=== PATIENT | male | born 1975 | race African-American/Black ===

== ENCOUNTER 2018-08-09 11:02 | Inpatient (IN) | payer OTHER ==
[2018-08-09 13:47] VITALS: BMI 26.9
--- NOTE | 2018-08-09 14:15 | HP ---
CIWA Score Nausea/Vomitin-Mild Nausea/No Vomiting Muscle Tremors: 4-Moderate,w/Arms Extend Anxiety: 1-Mildly Anxious Agitation: 1-Slight > Activity Paroxysmal Sweats: 3 (Increased facial moisture) Orientation: 0-Oriented Tacttile Disturbances: 0-None Auditory Disturbances: 0-None Visual Disturbances: 0-None Headache: 3-Moderate CIWA-Ar Total Score: 13 - Admission Criteria OAS Guidelines: Admission for Medically Managed Detox: Requires at least one of the followin. CIWA greater than 12 2. Seizures within the past 24 hours 3. Delirium tremens within the past 24 hours 4. Hallucinations within the past 24 hours 5. Acute intervention needed for co occurring medical disorder 6. Acute intervention needed for co occurring psychiatric disorder 7. Severe withdrawal that cannot be handled at a lower level of care (continued vomiting, continued diarrhea, abnormal vital signs) requiring intravenous medication and/or fluids 8. Patient presents the following: CIWA greater than 12 Admission Criteria Met: Admission criteria met Admission ROS [facility] Chief Complaint: Here for alcohol withdrawal. Allergies/Adverse Reactions: Allergies Allergy/AdvReac Type Severity Reaction Status Date / Time No Known Allergies Allergy Verified 08/09/18 13:39 History of Present Illness: Here for detox from alcohol and cocaine. Alcohol use began at age 16. States relapsed 1 month ago after being sober for 4 years (while incarcerated) Cocaine use began at age 21. States relapsed 1 month ago after being sober for 4 years (while incarcerated) Marijuana use began at age 16. Denies hx seizures, blackouts, or overdoses. States oxycodone was for toothache - still needs to see a dentist. Made aware that opiate medications are not prescribed in this facility. PMHx: Past hx chest pain. Denies other significant PMH. MHHx: Depression. Denies thoughts of harming self or others. Just starting to see a MH Provider. Not on MH meds. Patient Name: Margoth Schuler Date: 1975 Address: [id number] [place] [id number] Sex: Male Rx Written Rx Dispensed Drug Quantity Days Supply Prescriber Name 08/02/2018 08/03/2018 oxycodone-acetaminophen 5-325 mg tablet 12 3 George Moulton Reviewed current EKG w/ patient and discussed the cardiac risks r/t increased cocaine use. Patient verbalized an understanding. Exam Limitations: No Limitations - Ebola screening Have you traveled outside of the country in the last 21 days: No (N) Have you had contact with anyone from an Ebola affected area: No Do you have a fever: No - Review of Systems Constitutional: Chills EENT: reports: Nose Congestion, Dental Problems (Current dental pain - last took pain medication 1 week ago.) Respiratory: reports: No Symptoms reported Cardiac: reports: Other (States past heart problems - chest pain, but stopped when stopped smoking.) GI: reports: Diarrhea (watery, brownish), Nausea : reports: No Symptoms Reported Musculoskeletal: reports: No Symptoms Reported Integumentary: reports: Other (razor bumps) Neuro: reports: Headache (Frontal headache - moderate. Denies hx migraines) Endocrine: reports: Increased Thirst Hematology: reports: No Symptoms Reported Psychiatric: reports: Judgement Intact, Orientated x3, Agitated, Depressed ( Denies thoughts of harming self or others.) Patient History - PPD History Previous Implant?: Yes Documented Results: Negative w/o proof Implanted On Prior R Admission?: No PPD to be Administered?: Yes - Smoking Cessation Smoking history: Former smoker (Stopped in 2014) Have you smoked in the past 12 months: No Hx Chewing Tobacco Use: No Initiated information on smoking cessation: No - Substance & Tx. History Hx Alcohol Use: Yes Hx Substance Use: Yes Substance Use Type: Alcohol, Cocaine, Marijuana Hx Substance Use Treatment: Yes (detox, rehab, incarceration) - Substances abused Alcohol Substance route: Oral Frequency: Daily Amount used: $20 gin ( vodka) Age of first use: 16 Date of last use: 08/08/18 Cocaine Substance route: Smoking Frequency: Daily Amount used: $100 Age of first use: 21 Date of last use: 08/08/18 Marijuana/Hashish Substance route: Smoking Frequency: Daily Amount used: $50 Age of first use: 16 Date of last use: 08/08/18 Admission Physical Exam BHS - Vital Signs Vital Signs: Vital Signs - 24 hr 08/09/18 13:36 Temperature 98.1 F Pulse Rate 76 Respiratory 18 Rate Blood Pressure 126/72 - Physical General Appearance: Yes: Nourished, Disheveled, Moderate Distress, Tremorous, Sweating (Increased facial moisture), Anxious HEENTM: Yes: EOMI (Jerking movements of eyes upon lateral gaze), Hearing grossly Normal, Normocephalic, ELVIN, Nasal Congestion Respiratory: Yes: Lungs Clear, Normal Breath Sounds, No Respiratory Distress Neck: Yes: No masses,lesions,Nodules, Supple Breast: Yes: Breast Exam Deferred Cardiology: Yes: Regular Rhythm, Regular Rate, S1, S2 Abdominal: Yes: Flat, Soft, Increased Bowel Sounds, Other (Slight, soft, reducible bulge (R) inguinal area. 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 NML intact (Jerking movements of eyes upon lateral gaze), Fully Oriented, Alert, Motor Strength 5/5, Normal Response Integumentary: Yes: Normal Color, Dry (Except for increased facial moisture), Warm Lymphatic: Yes: Within Normal Limits - Diagnostic (1) Alcohol dependence with uncomplicated withdrawal Current Visit: Yes Status: Acute (2) Cannabis dependence, uncomplicated Current Visit: Yes Status: Chronic (3) Cocaine dependence, uncomplicated Current Visit: Yes Status: Chronic (4) Nystagmus Current Visit: Yes Status: Acute (5) Abnormal EKG Current Visit: Yes Status: Acute Comment: w/o chest pain or SOB. (6) Folliculitis Current Visit: Yes Status: Chronic Comment: occipital area Cleared for Admission S - Detox or Rehab [facility] Level of Care: Medically Managed Detox Regimen/Protocol: Librium Inpatient Rehab Admission - Rehab Decision to Admit Inpatient rehab admission?: No
[2018-08-09] MEDS ORDERED: ACETAMINOPHEN 325 MG TABLET (FP) PO PRN ×2 (14:43→14:53)
[2018-08-09] MEDS ORDERED: MAGNESIUM HYDROX 2400MG/30ML ORAL SUSPENSION 30 ML CUP PO PRN (14:43)
[2018-08-09] MEDS ORDERED: IBUPROFEN 400 MG TABLET (FP) PO PRN (14:43)
[2018-08-09] MEDS ORDERED: MELATONIN 5 MG TABLETS PO PRN (14:43)
[2018-08-09] MEDS ORDERED: MAGNESIUM CITRATE 300 ML BOTTLE PO PRN (14:43)
[2018-08-09] MEDS ORDERED: chlordiazePOXIDE HCL 10 MG CAPSULE PO PRN (14:43)
[2018-08-09] MEDS ORDERED: P-EPHED 60MG/TRIPROLIDI 2.5MG TABLET PO PRN (14:43)
[2018-08-09] MEDS ORDERED: MAG HYDROX/AL HYDROX/SIMETH 30 ML UNIT-DOSE CUP PO PRN (14:43)
[2018-08-09] MEDS ORDERED: BISMUTH SUBSALICYLATE 524 MG/30 ML UD PO PRN (14:43)
[2018-08-09] MEDS ORDERED: METHOCARBAMOL 500 MG TABLET PO PRN (14:43)
[2018-08-09] MEDS ORDERED: guaiFENesin 200 MG/10 ML 10 ML UNIT-DOSE CUPS PO PRN (14:43)
[2018-08-09] MEDS ORDERED: MENTHOL/PHENOL 1 EACH UD MM PRN (14:43)
[2018-08-09] MEDS ORDERED: PROCHLORPERAZINE MALEATE 5 MG TABLET PO PRN (14:43)
[2018-08-09] MEDS ORDERED: chlordiazePOXIDE HCL 25 MG CAPSULE PO ONE (15:00)
[2018-08-09] MEDS ORDERED: HYDROCORTISONE 1% TOPICAL OINT 30 GM TUBE TP PRN ×2 (17:26→17:30)
--- NOTE | 2018-08-09 17:52 | EKG ---
Test Reason : Blood Pressure : / mmHG Vent. Rate : 072 BPM Atrial Rate : 072 BPM P-R Int : 160 ms QRS Dur : 078 ms QT Int : 366 ms P-R-T Axes : 063 066 029 degrees QTc Int : 400 ms NORMAL SINUS RHYTHM MODERATE VOLTAGE CRITERIA FOR LVH, MAY BE NORMAL VARIANT NONSPECIFIC ST ABNORMALITY ABNORMAL ECG NO PREVIOUS ECGS AVAILABLE Confirmed by LIDIA FORMAN MD ([id number]) on 08/09/2018 5:52:24 PM Referred By: Confirmed By:LIDIA FORMAN MD
[2018-08-09 21:09] LABS: PH,URINE 6.5 (5.0-8.0); URINE APPEARANCE CLEAR; URINE BILIRUBIN NEGATIVE (NEGATIVE); URINE COLOR YELLOW; URINE GLUCOSE (UA) NEGATIVE (NEGATIVE); URINE KETONE TRACE (NEGATIVE); URINE LEUK ESTERASE NEGATIVE (NEGATIVE); URINE NITRITE NEGATIVE (NEGATIVE); URINE PROTEIN TRACE (NEGATIVE)
[2018-08-09] MEDS ORDERED: BACITRACIN 0.9 GM PACKET TP SCH (22:00)
[2018-08-09] MEDS ORDERED: THIAMINE HCL 100 MG TABLET (FP) PO SCH (22:00)
[2018-08-09] MEDS: chlordiazePOXIDE HCL 25 MG CAPSULE PO SCH (22:28)
[2018-08-09] MEDS: BACITRACIN 0.9 GM PACKET TP SCH (22:28)
[2018-08-10] MEDS: chlordiazePOXIDE HCL 25 MG CAPSULE PO SCH ×2 (05:21→14:14)
[2018-08-10] MEDS ORDERED: PRENATAL VITAMINS W/ FOLIC ACID TABLET (FP) PO SCH (10:00)
[2018-08-10 10:14] LABS: HEMATOCRIT 44.6 % (35.4-49); HEMOGLOBIN 14.9 GM/dL (11.7-16.9); MCH 30.1 pg (25.7-33.7); MCHC 33.5 g/dl (32.0-35.9); MEAN CELL VOLUME 89.7 fl (80-96); MEAN PLT VOLUME 10.9 fl (7.5-11.1); PLATELET COUNT 196 K/MM3 (134-434); RBC 4.97 M/mm3 (4.00-5.60); RDW 14.4 % (11.9-15.9); WHITE BLOOD COUNT 8.4 K/mm3 (4.0-10.0)
[2018-08-10 10:26] LABS: ALBUMIN 3.9 g/dl (3.4-5.0); ALK PHOS 64 U/L (45-117); ANION GAP 6 MMOL/L (8-16); BLOOD UREA NITROGEN 13 mg/dL (7-18); CALCIUM 8.7 mg/dL (8.5-10.1); CHLORIDE 106 mmol/L (98-107); CO2 29 mmol/L (21-32); CREATININE 1.2 mg/dL (0.55-1.3); GLUCOSE,RANDOM 96 mg/dL (74-106); POTASSIUM 4.4 mmol/L (3.5-5.1); SGOT/AST 35 U/L (15-37); SGPT/ALT 40 U/L (13-61); SODIUM 140 mmol/L (136-145); TOT PROT 6.9 g/dl (6.4-8.2)
[2018-08-10] MEDS: BACITRACIN 0.9 GM PACKET TP SCH (10:39)
[2018-08-10] MEDS ORDERED: ONDANSETRON *ODT* 4 MG TABLET SL PRN (11:04)
--- NOTE | 2018-08-10 11:04 | PN ---
S CIWA - CIWA Score Nausea/Vomitin-Mild Nausea/No Vomiting Muscle Tremors: 3 Anxiety: 2 Agitation: 2 Paroxysmal Sweats: 2 Orientation: 0-Oriented Tacttile Disturbances: 0-None Auditory Disturbances: 0-None Visual Disturbances: 0-None Headache: 0-None Present CIWA-Ar Total Score: 10 S Progress Note (SOAP) Subjective: nausea sweats irritable Objective: 08/10/18 11:03 Vital Signs Temperature 98.2 F 08/10/18 09:32 Pulse Rate 93 H 08/10/18 09:32 Respiratory Rate 18 08/10/18 09:32 Blood Pressure 122/74 08/10/18 09:32 O2 Sat by Pulse Oximetry (%) Laboratory Tests 08/09/18 08/10/18 08/10/18 11:55 07:00 07:00 WBC 8.4 RBC 4.97 Hgb 14.9 Hct 44.6 MCV 89.7 MCH 30.1 MCHC 33.5 RDW 14.4 Plt Count 196 MPV 10.9 Sodium 140 Potassium 4.4 Chloride 106 Carbon Dioxide 29 Anion Gap 6 L BUN 13 Creatinine 1.2 Creat Clearance w eGFR 66.40 Random Glucose 96 Calcium 8.7 Total Bilirubin 1.0 AST 35 ALT 40 Alkaline Phosphatase 64 Total Protein 6.9 Albumin 3.9 Urine Color Yellow Urine Appearance Clear Urine pH 6.5 Ur Specific [place] 1.032 Urine Protein Trace Urine Glucose (UA) Negative Urine Ketones Trace H Urine Blood Negative Urine Nitrite Negative Urine Bilirubin Negative Urine Urobilinogen 1.0 Ur Leukocyte Esterase Negative aaox3 ambulating no acute distress Assessment: 08/10/18 11:03 withdrawal sx Plan: continue detox increase fluids zofran prn
[2018-08-10 17:41] VITALS: BP 120/53; PULSE 75; TEMP 98.2
[2018-08-10] MEDS ORDERED: chlordiazePOXIDE 5 MG CAPSULE PO SCH (21:00)
--- NOTE | 2018-08-10 21:05 | DS ---
[facility] Detox Discharge Summary Admission Date: 08/09/18 Discharge Date: 08/10/18 - History Present History: Alcohol Dependence, Cannabis Dependence, Cocaine Dependence Additional Comments: Admitted w/ alcohol withdrawal symptoms. Pertinent Past History: Hx alcohol, cocaine, marijuana use disorder. Past hx chest pain. Asymptomatic on admission. Denies significant PMH. - Physical Exam Results Vital Signs: Vital Signs Temperature 98.2 F 08/10/18 17:40 Pulse Rate 75 08/10/18 17:40 Respiratory Rate 18 08/10/18 17:40 Blood Pressure 120/53 L 08/10/18 17:40 O2 Sat by Pulse Oximetry (%) Pertinent Admission Physical Exam Findings: Admitted w/ alcohol withdrawal symptoms for detox. Co-occurring cocaine and marijuana use disorder. Laboratory Last Values WBC 8.4 K/mm3 (4.0-10.0) 08/10/18 07:00 RBC 4.97 M/mm3 (4.00-5.60) 08/10/18 07:00 Hgb 14.9 GM/dL (11.7-16.9) 08/10/18 07:00 Hct 44.6 % (35.4-49) 08/10/18 07:00 MCV 89.7 fl (80-96) 08/10/18 07:00 MCH 30.1 pg (25.7-33.7) 08/10/18 07:00 MCHC 33.5 g/dl (32.0-35.9) 08/10/18 07:00 RDW 14.4 % (11.9-15.9) 08/10/18 07:00 Plt Count 196 K/MM3 (134-434) 08/10/18 07:00 MPV 10.9 fl (7.5-11.1) 08/10/18 07:00 Sodium 140 mmol/L (136-145) 08/10/18 07:00 Potassium 4.4 mmol/L (3.5-5.1) 08/10/18 07:00 Chloride 106 mmol/L (98-107) 08/10/18 07:00 Carbon Dioxide 29 mmol/L (21-32) 08/10/18 07:00 Anion Gap 6 MMOL/L (8-16) L 08/10/18 07:00 BUN 13 mg/dL (7-18) 08/10/18 07:00 Creatinine 1.2 mg/dL (0.55-1.3) 08/10/18 07:00 Creat Clearance w eGFR 66.40 (>60) 08/10/18 07:00 Random Glucose 96 mg/dL (74-106) 08/10/18 07:00 Calcium 8.7 mg/dL (8.5-10.1) 08/10/18 07:00 Total Bilirubin 1.0 mg/dL (0.2-1) 08/10/18 07:00 AST 35 U/L (15-37) 08/10/18 07:00 ALT 40 U/L (13-61) 08/10/18 07:00 Alkaline Phosphatase 64 U/L (45-117) 08/10/18 07:00 Total Protein 6.9 g/dl (6.4-8.2) 08/10/18 07:00 Albumin 3.9 g/dl (3.4-5.0) 08/10/18 07:00 Urine Color Yellow 08/09/18 11:55 Urine Appearance Clear 08/09/18 11:55 Urine pH 6.5 (5.0-8.0) 08/09/18 11:55 Ur Specific [place] 1.032 (1.010-1.035) 08/09/18 11:55 Urine Protein Trace (NEGATIVE) 08/09/18 11:55 Urine Glucose (UA) Negative (NEGATIVE) 08/09/18 11:55 Urine Ketones Trace (NEGATIVE) H 08/09/18 11:55 Urine Blood Negative (NEGATIVE) 08/09/18 11:55 Urine Nitrite Negative (NEGATIVE) 08/09/18 11:55 Urine Bilirubin Negative (NEGATIVE) 08/09/18 11:55 Urine Urobilinogen 1.0 mg/dL (0.2-1.0) 08/09/18 11:55 Ur Leukocyte Esterase Negative (NEGATIVE) 08/09/18 11:55 RPR Titer Nonreactive (NONREACTIVE) 08/10/18 07:00 Labs reviewed. - Treatment Hospital Course: Detox Protocol Followed (Detox started but not completed. Patient last medicated w/ Libruim at 1414 hrs.) - Medication Discharge Medications: Ambulatory Orders NK [No Known Home Medication] 08/09/18 - Diagnosis (1) Alcohol dependence with uncomplicated withdrawal Status: Acute (2) Cannabis dependence, uncomplicated Status: Chronic (3) Cocaine dependence, uncomplicated Status: Chronic (4) Nystagmus Status: Acute (5) Abnormal EKG Status: Acute (6) Folliculitis Status: Chronic - AMA Did Patient Leave Against Medical Advice: Yes (Patient refused to stay and speak w/ provider. )
[2018-08-11] MEDS ORDERED: chlordiazePOXIDE HCL 10 MG CAPSULE PO SCH (21:00)
[2018-08-11] MEDS ORDERED: chlordiazePOXIDE HCL 10 MG CAPSULE PO PRN (21:00)
== END 2018-08-10 06:25 | disposition left against medical advice (07) | DRG 770 ==
LOC: YASAS 11:02 → Y6N 14:52
PROVIDERS: ADMIT Surgery; ATTEND Surgery
PROC: HZ2ZZZZ Detoxification Services for Substance Abuse Treatment (ICD-10-PCS; principal; 2018-08-09)
DX: F10.230 Alcohol dependence with withdrawal, uncomplicated (principal); F14.20 Cocaine dependence, uncomplicated; F12.20 Cannabis dependence, uncomplicated; H55.00 Unspecified nystagmus; R94.31 Abnormal electrocardiogram [ECG] [EKG]; L73.9 Follicular disorder, unspecified; Z87.891 Personal history of nicotine dependence
CPT/HCPCS: 36415; 80053; 81003; 85027; 86593; 93005; 93010

== ENCOUNTER 2022-01-28 13:03 | Inpatient (IN) | payer OTHER ==
[2022-01-28 15:41] VITALS: BMI 30.7
[2022-01-28] MEDS ORDERED: MAGNESIUM CITRATE 300 ML BOTTLE PO PRN (16:45)
[2022-01-28] MEDS ORDERED: NALOXONE HCL (KLOXXADO) 8 MG SPRAY NS PRN (16:45)
[2022-01-28] MEDS ORDERED: IBUPROFEN 600 MG TABLET (FP) PO PRN (16:45)
[2022-01-28] MEDS ORDERED: IBUPROFEN 400 MG TABLET (FP) PO PRN (16:45)
[2022-01-28] MEDS ORDERED: DICYCLOMINE HCL 10 MG CAPSULE PO PRN (16:45)
[2022-01-28] MEDS ORDERED: MAGNESIUM HYDROX 2400MG/30ML ORAL SUSPENSION 30 ML CUP PO PRN (16:45)
[2022-01-28] MEDS ORDERED: ACETAMINOPHEN 325 MG TABLET (FP) PO PRN ×2 (16:45)
[2022-01-28] MEDS ORDERED: MAG HYDROX/AL HYDROX/SIMETH 30 ML UNIT-DOSE CUP PO PRN (16:45)
[2022-01-28] MEDS ORDERED: BISMUTH SUBSALICYLATE 524 MG/30 ML PO PRN (16:45)
[2022-01-28] MEDS ORDERED: NICOTINE POLACRILEX 2 MG GUM BUC PRN (16:45)
[2022-01-28] MEDS ORDERED: BENZOCAINE/MENTHOL (CHLORASEPTIC ) LOZENGE MM PRN (16:45)
[2022-01-28] MEDS ORDERED: chlordiazePOXIDE HCL 25 MG CAPSULE PO PRN (16:45)
[2022-01-28] MEDS ORDERED: LOPERAMIDE HCL 2 MG CAPSULE PO PRN (16:45)
[2022-01-28] MEDS ORDERED: ONDANSETRON *ODT* 4 MG TABLET SL PRN (16:45)
[2022-01-28] MEDS: THIAMINE HCL 100 MG TABLET (FP) PO SCH (23:02)
[2022-01-28] MEDS: chlordiazePOXIDE HCL 25 MG CAPSULE PO SCH (23:02)
[2022-01-28] MEDS: MELATONIN 5 MG TABLETS PO SCH (23:02)
[2022-01-29] MEDS: chlordiazePOXIDE HCL 25 MG CAPSULE PO SCH ×3 (06:01→19:32)
[2022-01-29] MEDS: PRENATAL VITAMINS W/ FOLIC ACID TABLET (FP) PO SCH (11:17)
[2022-01-29] MEDS: METHOCARBAMOL 500 MG TABLET PO PRN (11:17)
[2022-01-29] MEDS: NICOTINE 21 MG/24 HOURS TOPICAL PATCH TD SCH (11:19)
[2022-01-29 12:19] LABS: HEMATOCRIT 39.9 % (35.4-49); HEMOGLOBIN 13.5 GM/dL (11.7-16.9); MCHC 33.7 g/dl (32.0-35.9); MEAN CELL VOLUME 88.9 fl (80-96); MEAN PLT VOLUME 10.2 fl (7.5-11.1); PLATELET COUNT 182 10^3/uL (134-434); RBC 4.48 M/mm3 (4.00-5.60); RDW 14.5 % (11.9-15.9); WHITE BLOOD COUNT 6.8 K/mm3 (4.0-10.0)
[2022-01-29 12:59] LABS: BLOOD UREA NITROGEN 14.8 mg/dL (7-18)
[2022-01-29 13:04] LABS: BILIRUBIN,TOTAL 0.2 mg/dL (0.2-1)
[2022-01-29 13:07] LABS: TOT PROT 5.7 g/dl (6.4-8.2)
[2022-01-30] MEDS: chlordiazePOXIDE HCL 25 MG CAPSULE PO SCH ×3 (00:12→12:00)
[2022-01-30] MEDS: MELATONIN 5 MG TABLETS PO SCH (00:12)
[2022-01-30] MEDS: THIAMINE HCL 100 MG TABLET (FP) PO SCH (00:12)
[2022-01-30] MEDS: NICOTINE 21 MG/24 HOURS TOPICAL PATCH TD SCH (10:31)
[2022-01-30] MEDS: PRENATAL VITAMINS W/ FOLIC ACID TABLET (FP) PO SCH (10:33)
[2022-01-30] MEDS: METHOCARBAMOL 500 MG TABLET PO PRN (10:33)
[2022-01-30 12:50] VITALS: BP 160/92; PULSE 93; RESP 19; TEMP 98.9
[2022-01-31] MEDS ORDERED: chlordiazePOXIDE HCL 10 MG CAPSULE PO PRN
[2022-01-31] MEDS ORDERED: chlordiazePOXIDE HCL 10 MG CAPSULE PO SCH (05:00)
[2022-02-01] MEDS ORDERED: chlordiazePOXIDE HCL 10 MG CAPSULE PO SCH (05:00)
[2022-02-02] MEDS ORDERED: chlordiazePOXIDE HCL 10 MG CAPSULE PO ONE (05:00)
== END 2022-01-30 17:16 | disposition left against medical advice (07) | DRG 770 ==
LOC: YASAS 13:03 → Y6N 17:41
PROVIDERS: ADMIT Allergy & Immunology; ATTEND Surgery
PROC: HZ2ZZZZ Detoxification Services for Substance Abuse Treatment (ICD-10-PCS; principal; 2022-01-28)
DX: F10.230 Alcohol dependence with withdrawal, uncomplicated (principal); F14.20 Cocaine dependence, uncomplicated; F17.210 Nicotine dependence, cigarettes, uncomplicated; Z28.310 Unvaccinated for COVID-19; Z28.9 Immunization not carried out for unspecified reason; Z56.0 Unemployment, unspecified; Z59.00 Homelessness unspecified
CPT/HCPCS: 36415; 80053; 85027; 86780; 93005; 93010; C9803-CS; U0003; U0005